=== PATIENT | female | born 1995 | race Caucasian/White ===

== ENCOUNTER 2017-06-05 12:08 | Emergency (ER) | payer BC, SELFPAY ==
[2017-06-05 13:11] VITALS: BP 122/86; PULSE 84; RESP 20; TEMP 36.7; O2SAT 99; BMI 25.6
[2017-06-05 13:25] LABS: UTC Strep Screen (Rapid) Negative (Negative)
--- NOTE | 2017-06-05 13:34 | HMH.EDUTC ---
[facility] – [place] Disposition Clinical Impression: Uvulitis Disposition: Home, Self-Care Condition on Discharge: Good Additional Instructions: The uvula is the tissue that hangs in the back of the throat. Uvulitis is inflammation of the uvula. Inflammation happens when the body responds to an injury, allergic reaction, infection or illness. Symptoms of inflammation may include redness, irritation, itching, swelling, or burning. Uvulitis is more common in children than adults. Symptoms of uvulitis include: Sore throat Trouble swallowing Painful swallowing Trouble breathing Possible causes of uvulitis include: Throat infection Inhaling or swallowing chemicals Inhaling hot air or steam Allergic reaction to something eaten, touched or breathed in In rare cases, uvulitis can be caused by a condition called angioedema. Angioendema can be: Hereditary (runs in the family). A side effect of a class of drugs used for high blood pressure called ALYSON inhibitors. Life-threatening. It can lead to swelling of the air passage in the mouth or throat. Severe swelling can block your breathing and cause . Watch for the earliest signs of this illness. Call 911 if the swelling involves the face, mouth, or throat areas. To help find the cause of the uvulitis, imaging tests may be done. If infection is suspected, swabs from the throat or samples of blood may be tested. Questions may be asked about an individuals vaccination history to be sure it is up to date. A cause for uvulitis is not always found. Treatment depends on the cause and the severity of the symptoms. Home care Medicines: The doctor may prescribe antibiotics for an infection. For an allergic reaction or angioedema, medicines called steroids or antihistamines may be given. Follow instructions when using any medicine. To care for the condition at home: Rest until the symptoms go away. If medicines were prescribed, be sure they are taken as directed. They should be taken until they are gone or the healthcare provider says to stop them. If you were told that your angioedema was from a medicine that you are taking, you must stop taking this medicine. Contact your doctor for a prescription for a different medicine. Advise future medical providers that you are allergic to this medicine. Contact your healthcare provider before taking any vxhq-yaw-shiamyt medicines. Drink fluids. Pain when swallowing may make it harder to drink and lead to dehydration. To prevent this, sip fluids throughout the day. Children can be given frozen juice bars, milk, or other cold liquids. Watch for the signs of dehydration listed below. Ask your healthcare provider when you can return to work or school. Ask your oziel healthcare provider when your child can return to school or daycare. Follow-up care Follow up with the healthcare provider as directed. You may be referred to a specialist (an allergy doctor and/or an ear, nose, or throat doctor) for further evaluation and treatment. Make these visits as soon as possible. When to seek medical advice Call the healthcare provider right away for any of the following: Symptoms not going away or getting worse Symptoms of dehydration, including dark urine, dry mouth, cracked lips, dizziness, or sunken eyes A child acting very sick or not improving Fever in adults: Fever over 100.4?F (38?C), or as directed by the healthcare provider. Fever in children: Child of any age has repeated fevers above 104?F (40?C). Child younger than 2 years of age has a fever of 100.4?F (38?C) that continues for more than 1 day. Child 2 years old or older has a fever of 100.4?F (38?C) that continues for more than 3 days. Call 911 Call 911 if any of these occur: Drooling or trouble swallowing Trouble breathing Trouble talking Swollen tongue, lips, face, or throat (may be indicated by voice changes) Jerking and loss of consciousness; seizure Lack of response, extreme drowsiness, or trouble waking up
--- NOTE | 2017-06-05 13:37 | ED_ITS ---
[facility] – [place] Disposition Clinical Impression: Uvulitis Disposition: Home, Self-Care Condition on Discharge: Good Additional Instructions: The uvula is the tissue that hangs in the back of the throat. Uvulitis is inflammation of the uvula. Inflammation happens when the body responds to an injury, allergic reaction, infection or illness. Symptoms of inflammation may include redness, irritation, itching, swelling, or burning. Uvulitis is more common in children than adults. Symptoms of uvulitis include: * Sore throat * Trouble swallowing * Painful swallowing * Trouble breathing Possible causes of uvulitis include: * Throat infection * Inhaling or swallowing chemicals * Inhaling hot air or steam * Allergic reaction to something eaten, touched or breathed in In rare cases, uvulitis can be caused by a condition called angioedema. Angioendema can be: * Hereditary (runs in the family). * A side effect of a class of drugs used for high blood pressure called ?ALYSON inhibitors.? * Life-threatening. It can lead to swelling of the air passage in the mouth or throat. Severe swelling can block your breathing and cause . Watch for the earliest signs of this illness. Call 911 if the swelling involves the face, mouth, or throat areas. To help find the cause of the uvulitis, imaging tests may be done. If infection is suspected, swabs from the throat or samples of blood may be tested. Questions may be asked about an individual?s vaccination history to be sure it is up to date. A cause for uvulitis is not always found. Treatment depends on the cause and the severity of the symptoms. Home care Medicines: The doctor may prescribe antibiotics for an infection. For an allergic reaction or angioedema, medicines called steroids or antihistamines may be given. Follow instructions when using any medicine. To care for the condition at home: * Rest until the symptoms go away. * If medicines were prescribed, be sure they are taken as directed. They should be taken until they are gone or the healthcare provider says to stop them. * If you were told that your angioedema was from a medicine that you are taking , you must stop taking this medicine. Contact your doctor for a prescription for a different medicine. Advise future medical providers that you are allergic to this medicine. * Contact your healthcare provider before taking any pvze-ufi-klqkinz medicines. * Drink fluids. Pain when swallowing may make it harder to drink and lead to dehydration. To prevent this, sip fluids throughout the day. Children can be given frozen juice bars, milk, or other cold liquids. Watch for the signs of dehydration listed below. * Ask your healthcare provider when you can return to work or school. Ask your child?s healthcare provider when your child can return to school or daycare. Follow-up care Follow up with the healthcare provider as directed. You may be referred to a specialist (an allergy doctor and/or an ear, nose, or throat doctor) for further evaluation and treatment. Make these visits as soon as possible. When to seek medical advice Call the healthcare provider right away for any of the following: * Symptoms not going away or getting worse * Symptoms of dehydration, including dark urine, dry mouth, cracked lips, dizziness, or sunken eyes * A child acting very sick or not improving Fever in adults: * Fever over 100.4?F (38?C), or as directed by the healthcare provider. Fever in children: * Child of any age has repeated fevers above 104?F (40?C). * Child younger than 2 years of age has a fever of 100.4?F (38?C) that continues for more than 1 day. * Child 2 years old or older has a fever of 100.4?F (38?C) that continues for mo
[2017-06-05 13:53] LABS: UTC Influenza A Antigen Negative (Negative); UTC Influenza B Antigen Negative (Negative)
[2017-06-05 14:19] VITALS: BP 122/86; PULSE 84; RESP 20; TEMP 36.7; O2SAT 99
== END 2017-06-05 14:20 | disposition home or self-care (01) ==
PROVIDERS: Emergency Provider Nurse Practitioner Family; Family Provider Physician Assistant; PCP Physician Assistant
DX: K12.2 Cellulitis and abscess of mouth (principal)
CPT/HCPCS: 87804; 87880; 99202

== ENCOUNTER → 2018-10-02 08:35 | Outpatient (POV) | payer OTHER, SELFPAY | PROVIDERS: Visit Provider Dermatology | DX: Z00.00 Encounter for general adult medical examination without abnormal findings (principal) ==

== ENCOUNTER → 2019-01-25 10:02 | Outpatient (CLI) | payer OTHER, SELFPAY ==
--- NOTE | 2019-01-25 10:04 | XR_ITS ---
PROCEDURE: XR KNEE LT 4V CLINICAL INDICATION: left knee pain COMPARISON: No exams were available for comparison FINDINGS: No fracture or dislocation. No lytic or blastic change. There is normal mineralization. The joint spaces are well-preserved. No significant degenerative/arthritic changes. No erosive changes evident. Other findings:None. IMPRESSION: No acute findings. Dictated by: Tyrone Soto MD 01/25/2019 10:24 Electronically signed by Tyrone Soto MD in [place] 01/25/2019 10:24
== END ==
PROVIDERS: PCP Nurse Practitioner Family; Visit Provider Orthopaedic Surgery
DX: M25.562 Pain in left knee (principal)
CPT/HCPCS: 73564

== ENCOUNTER → 2019-02-01 14:26 | Outpatient (CLI) | payer OTHER, SELFPAY ==
--- NOTE | 2019-02-01 14:28 | MR_ITS ---
PROCEDURE: MR KNEE LT WO CON CLINICAL INDICATION: evaluate for meniscal tear Knee pain with limited range of motion COMPARISON: XR KNEE LT 4V from 01/25/2019 TECHNIQUE: Routine multiplanar multi echo sequences are performed without gadolinium enhancement. FINDINGS: The cruciate ligaments, medial collateral ligament, patellar tendon, and quadriceps tendon have an unremarkable appearance. There does appear to be disruption of the fibular collateral ligament and of the popliteus tendon. No meniscal tear is evident. There is a small knee joint effusion. The patellar cartilage is well preserved. No bone bruise apparent. IMPRESSION: Posterior lateral corner injury with tear of the fibular collateral ligament and the popliteus tendon Dictated by: Tyrone Soto MD 02/02/2019 14:53 Electronically signed by Tyrone Soto MD in [place] 02/05/2019 07:22
== END ==
PROVIDERS: PCP Family Medicine; Visit Provider Orthopaedic Surgery
DX: M25.562 Pain in left knee (principal)
CPT/HCPCS: 73721

== ENCOUNTER 2019-02-14 15:00 | Outpatient (RCR) | payer OTHER, SELFPAY | END 2019-02-14 15:20 | disposition home or self-care (01) | LOC: PT 15:00 | PROVIDERS: Visit Provider Orthopaedic Surgery | DX: M25.562 Pain in left knee (principal) ==